=== PATIENT | female | born 1995 | race Caucasian/White ===

== ENCOUNTER 2022-08-15 00:31 | Emergency (ER) | payer OTHER, SELFPAY ==
[2022-08-15 00:32] VITALS: BP 132/94; PULSE 79; RESP 16; TEMP 36.6; O2SAT 98; BMI 22.0
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
[2022-08-15] MEDS: Morphine Sulfate 4 MG/ML CARTRIDGE IM (01:04)
[2022-08-15] MEDS: Bacitracin Oint 0.9 GM PACKET 1 APPL TOPICAL (01:07)
--- OUTSIDE RECORDS SUMMARY | 2022-08-15 01:31 | XMS_ITS | Continuity of Care Document ---
Author Name Unknown Organization [facility] Address [address] [place] [address]- Care Team Providers Care Laborer Pie Bakery Name Role Phone Santo Parnell DO Primary Care Physician Encounter 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
--- OUTSIDE RECORDS SUMMARY | 2022-08-15 01:31 | XMS_ITS | Continuity of Care Document ---
Author Name Unknown Organization [facility] Address [address] [place] [address]- Care Team Providers Care Real Estate Marketing Coordinator Name Role Phone Santo Parnell DO Primary Care Physician Encounter [facility] NBR [id number] Date(s): 04/13/19 - 04/13/[address] [address]- [facility] Encounter Diagnosis Acute tension headache(Final) - 04/13/19 Analgesic rebound headache(Final) - 04/13/19 Discharge Disposition: A-D/C Home Attending Physician: Vladimir Lofton MD Admitting Physician: Vladimir Lofton MD Referring Physician: Not on Staff, Referring MD Allergies, Adverse Reactions, Alerts Substance Reaction Severity Status NKA Active Problem List Condition Effective Dates Status Health Status Inform ant Asthma(Confirmed) Active Attention deficit hyperactiv ity disorder(Confirmed) Active Cannabis abuse(Confirmed) Active Conduct disturbance(Confirmed) Active 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 BURT (generalized anxiety disorder)(Confirmed) Active Mood disorder(Confirmed) Active Panic disorder with agorapho jennifer, mild agoraphobic avoidance and mild panic attacks(Confirmed) Active Vital Signs Most recent to oldest [Reference Range]: 1 Height 168 cm (04/13/19 4:36 PM) Weight 47.8 kg (04/13/19 4:36 PM) Oxygen Saturation [94-100 %] 99 % (04/13/19 4:36 PM) Pulse Rate [55-90 bpm] 101 bpm *H* (04/13/19 4:36 PM) Blood Pressure [90-138/55-84 mm Hg] 119/ 79mm Hg (04/13/19 4:36 PM) Respiratory Rate [16-30 br/min] 16 br/mi n (04/13/19 4:36 PM) Temperature [96.8-100.4 DegF] 99.3 DegF (04/13/19 4:36 PM) Mode of Delivery (Oxygen) Room air (04/13/19 4:36 PM) Temperature Route Temporal (04/13/19 4:36 PM) Dry Weight 47.8 kg (04/13/19 4:36 PM) Social History Social History Type Response Smoking Status Current every day marychuy brody entered on: 10/03/16 Sex
--- OUTSIDE RECORDS SUMMARY | 2022-08-15 01:31 | XMS_ITS | Continuity of Care Document ---
Author Name Unknown Organization [facility] ter Address [address] [place] [address]- Care Team Providers Care Tower Climber Name Role Phone Santo Parnell DO Primary Care Physician Encounter [facility] [place] Date(s): 11/11/19 - 12/18/[address] [address]- [facility] Attending Physician: Alyson Reeves NP Admitting Physician: Alyson Reeves NP Referring Physician: Alyson Reeves NP Allergies, Adverse Reactions, Alerts Substance Reaction Severity [...]
--- OUTSIDE RECORDS SUMMARY | 2022-08-15 01:31 | XMS_ITS | Continuity of Care Document ---
Author Name Unknown Organization [facility] Address [address] [place] [address]- Care Team Providers Care Supervisor Phosphorus Processing Name Role Phone Santo Parnell DO Primary Care Physician [place] [facility] Date[place] 11/07/[place] - 11/14/[address] [facility] [address] [place] [address]- [facility] Attending Physician: Lala SOMERS, Alyson Marrero Referring Physician: Santo Parnell DO Allergies, Adverse Reactions, Alerts Substance Reaction Severity [...] recent to oldest [Reference Range]: 1 Height 170 cm (11/07/19 4:09 PM) Weight 46.9 kg (11/07/19 4:09 PM) Pulse Rate [55-90 bpm] 76 bpm (11/07/19 4:09 PM) Body Mass Index [18.5-24.99] 16.23 *L* (11/07/19 4:09 PM) Blood Pressure [90-138/55-84 mm Hg] 109/ 61mm Hg (11/07/19 4:09 PM) Temperature [96.8-100.4 DegF] 98.7 DegF (11/07/19 4:09 PM) Blood pressure sites Arm, right (11/07/19 4:09 PM) Temperature Route Temporal (9/10/20 4:09 PM) Social History Social History Type Response Smoking Status Current every day marychuy brody entered on: 10/03/16 Sex
--- OUTSIDE RECORDS SUMMARY | 2022-08-15 01:31 | XMS_ITS | Continuity of Care Document ---
Author Name Unknown Organization [facility] ter Address [address] [place] [address]- Care Team Providers Care Remedial Project Manager Name Role Phone Santo Parnell DO Primary Care Physician Encounter [facility] Date(s): 11/07/19 - 12/11/[address] [address]- [facility] Attending Physician: Alyson Reeves NP Admitting Physician: [...]
--- OUTSIDE RECORDS SUMMARY | 2022-08-15 01:31 | XMS_ITS | Continuity of Care Document ---
Author Name Unknown Organization [facility] Address [address] [place] [address]- Care Team Providers Care Precision Dancer Name Role Phone Santo Parnell DO Primary Care Physician Encounter [facility] Date(s): 08/22/20 - 08/22/[address] [address]- Discharge Disposition: A-D/C Walkout Attending Physician: Sanya Herrera MD Admitting Physician: Sanya Herrera MD Referring Physician: Not on Staff, Referring [...]
--- OUTSIDE RECORDS SUMMARY | 2022-08-15 01:31 | XMS_ITS | Continuity of Care Document ---
Author Name Unknown Organization [facility] Address [address] [place] [address]- Care Team Providers Care Stone Decorator Name Role Phone Santo Parnell DO Primary Care Physician [id number] Date(s): 10/20/21 - 11/19/[address] [address] Allergies, Adverse Reactions, Alerts No Known Allergies Medications LORazepam 1 mg oral tablet See Instructions, PRN as needed for anxiety, Take 1 tablet 2 times a day and during PMS take up to 3 tablets per day MDD = 3mg, # 70 tablet, 3 Refills, Maintenance, 09/03/21 11:41:00 EDT, Tablet, [id number], 2nd rx for refill sent 01/08/2021.... Start Date: 09/03/21 Status: Ordered sertraline 100 mg oral tablet 1 tablet = 100 mg, By Mouth, Daily, # 90 tablet, 1 Refills, Maintenance, 09/03/21 11:42:00 EDT, Tablet, [id number], 2nd rx sent 06/29/2020, 170, cm, 02/16/20 2:45:00 EST, Height, 51.4, kg, 06/28/20 3:15:00 EDT, Dry Weight Start Date: 09/03/21 Stop Date: 03/02/22 Status: Ordered Problem List Condition Effective Dates Status Health [...] day [email or web address] brody entered on: 10/03/16 Sex Care Team Personnel Name: Santo Parnell DO Address: [address] [place] [address] [address] [place], [place] [address]
--- OUTSIDE RECORDS SUMMARY | 2022-08-15 01:31 | XMS_ITS | Continuity of Care Document ---
Author Name Unknown Organization [facility] ter Address [address] [place] [address]- Care Team Providers Care Cup Setter Lockstitch Name Role Phone Santo Parnell DO Primary Care Physician [place] [facility] [place] - 06/28/[address] [address] Discharge Disposition: A-D/C Home Attending Physician: José Miguel MONTAGUE, April Admitting Physician: José Miguel MONTAGUE, April Referring Physician: José Miguel MONTAGUE, April Allergies, Adverse Reactions, Alerts Substance Reaction Severity Status NKA Active Medications No Known Medications Problem List Condition Effective Dates Status Health Status Inform ant Asthma(Confirmed) Active Attention deficit hyperactiv ity disorder(Confirmed) Active Cannabis abuse(Confirmed) Active Conduct disturbance(Confirmed) Active 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 BURT (generalized anxiety disorder)(Confirmed) Active Mood disorder(Confirmed) Active Panic disorder with agorapho jennifer, mild agoraphobic avoidance and mild panic attacks(Confirmed) Active Vital Signs Most recent to oldest [Reference Range]: 1 Weight 51.4 kg (06/28/20 3:15 AM) Oxygen Saturation [94-100 %] 100 % (06/28/20 3:27 AM) Pulse Rate [55-90 bpm] 89 bpm (06/28/20 3:27 AM) Blood Pressure [90-138/55-84 mm Hg] 118/ 65mm Hg (06/28/20 3:27 AM) Respiratory Rate [16-30 br/min] 18 br/mi n (06/28/20 3:27 AM) Temperature [96.8-100.4 DegF] 99.5 DegF (06/28/20 3:27 AM) Mode of Delivery (Oxygen) Room air (06/28/20 3:27 AM) Blood pressure sites Arm, left (06/28/20 3:27 AM) Temperature Route Oral (06/28/20 3:27 AM) Dry Weight 51.4 kg (06/28/20 3:15 AM) Weight Obtained Via Standing scale (06/28/20 3:15 AM) Social History Social History Type Response Smoking Status Current every day [email or web address] brody entered on: 10/03/16 Sex
--- OUTSIDE RECORDS SUMMARY | 2022-08-15 01:31 | XMS_ITS | Continuity of Care Document ---
Author Name Unknown Organization [facility] ter Address [address] [place] [id number]- Care Team Providers Care Flame Gouger Name Role Phone Santo Parnell DO Primary Care Physician [id number] Date(s): 01/08/22 - 01/09/[address] [address]- Encounter Diagnosis Pharyngitis(Final) - 01/09/22 Discharge Disposition: A-D/C Home Attending Physician: Garrett Bowman MD Admitting Physician: Garrett Bowman MD Referring Physician: Not on Staff, Referring MD Allergies, Adverse Reactions, Alerts No Known Allergies Medications LORazepam 1 mg oral tablet See Instructions, PRN as needed for anxiety, Take 1 tablet 2 times a day and during PMS take up to 3 tablets per day MDD = 3mg, # 70 tablet, 3 Refills, Maintenance, 01/07/22 9:13:00 EST, Tablet, [id number], 2nd rx for refill sent 01/08/2021.... Start Date: 01/07/22 Status: Ordered sertraline 100 mg oral tablet 1 tablet = 100 mg, By Mouth, Daily, # 90 tablet, 1 Refills, Maintenance, 01/07/22 9:13:00 EST, Tablet, [id number], 2nd rx sent 06/29/2020, 170, cm, 02/16/20 2:45:00 EST, Height, 51.4, kg, 06/28/20 3:15:00 EDT, Dry Weight Start Date: 01/07/22 Stop Date: 07/06/22 Status: Ordered sertraline 25 mg oral tablet 1 tablet = 25 mg, By Mouth, Daily, take with 100mg for a TDD 125mg dose increase, # 90 tablet, 1 Refills, Maintenance, 01/07/22 9:14:00 EST, Tablet, [id number], Partial fill upon patient request if the prescription is for a schedule II opioid... 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 Confirmed Active Results Orders for Microbiology Reports Name Date Blood Culture 01/08/22 Blood Culture #2 01/08/22 Microbiology Reports TEST:Blood Culture STATUS:Unauthenticated BODY SITE: SOURCE:Blood COLLECTED DATE/TIME:01/08/22 10:49 PM Blood Culture SPECIMEN DESCRIPTION : BLOOD RAC SPECIAL REQUESTS : NONE CULTURE : NO GROWTH AFTER 24 HOURS REPORT STATUS : PRELIMINARY REPORT TEST:Blood Culture, Second Order STATUS:Unauthenticated BODY SITE: SOURCE:Blood COLLECTED DATE/TIME:01/08/22 10:49 PM Blood Culture, Second Order SPECIMEN DESCRIPTION : BLOOD LAC SPECIAL REQUESTS : NONE CULTURE : NO GROWTH AFTER 24 HOURS REPORT STATUS : PRELIMINARY REPORT Radiology Reports * Exam Date Time Procedure Performing Provider Status 01/09/22 12:[address] Soft Tissue Neck W/ Contrast Stup ak , Kulwant; Auth (Verified) Notes: (CT Soft Tissue Neck W/ Contrast) Reason For Exam: Neck mass, nonpulsatile;Other: RESULT: CT Soft Tissue Neck W/ Contrast CT Soft Tissue Neck W/ Contrast Hx of Present Illness: Sore throat x 1year, worse x 2 weeks. Unable to get in with ENT or PCP; Reason: Neck mass, nonpulsatile; Clinical Question(s): Lymphadenopathy; TECHNIQUE: Spiral CT neck with IV contrast formatted in 3 planes. 75 cc of Omnipaque 300 was administered intravenously. Weight-based protocol using automatic tube modulation was used to optimize exposure parameters. CTDIvol Body: 7.90 mGy, DLP Body: 258 mGy*cm. COMPARISON: None FINDINGS: [place] Findings, Lines and Tubes: None. Lower intracranial contents: No abnormalities are seen involving the portions of brain and extra-axial spaces included on the exam. Cervical Lymph Nodes: Normal in size. Paranasal Sinuses: The portions included on the study are clear. Mucosa and parapharyngeal spaces: No lesion identified. Vocal Cords: Normal. Salivary Glands: Normal. Vascular Structures: Grossly unremarkable. Thyroid Gland: Normal CT appearance. Upper mediastinum and lung apices: Normal. Bones: No focal abnormalities IMPRESSION: Unremarkable neck CT. No acute inflammatory process. No lymphadenopathy. I have personally reviewed the images and I agree with this report. WSN: [id number] Ordering Physician: Elida Thomas Dictated By: Fabian Hagen DO Dictated Date/Time: 01/09/22 3:39 am Reviewed By: Tonya Ewing MD Signed By: Tonya Ewing MD Signed Date/Time: 01/09/22 3:44 am Transcribed By: HARPREET Transcribed Date/Time: 01/09/22 0:57 am Vital Signs Most recent to oldest [Reference Range]: 1 2 3 Oxygen Saturation [94-100 %] 99 % (01/09/22 3:04 AM) 98 % (01/09/22 1:06 AM) 99 % (01/08/22 10:50 PM) Pulse Rate [55-90 bpm] 53 bpm *L* (01/09/22 3:04 AM) 50 bpm *L* (01/09/22 1:06 AM) 79 bpm (01/08/22 10:50 PM) Blood Pressure [90-138/55-84 mm Hg] 110/66mm Hg (01/09/22 3:04 AM) 121/77mm Hg (01/09/22 1:06 AM) 115/70mm Hg (01/08/22 10:50 PM) Respiratory Rate [16-30 br/min] 18 br/min (01/09/22 3:04 AM) 18 br/min (01/09/22 1:06 AM) 18 br/min (01/08/22 10:50 PM) Temperature [96.8-100.4 DegF] 98.1 DegF (01/09/22 3:04 AM) 98.3 DegF (01/08/22 10:50 PM) 98.4 DegF (01/08/22 10:10 PM) Mode of Delivery (Oxygen) Room air (01/09/22 3:04 AM) Room air (01/09/22 1:06 AM) Room air (01/08/22 10:50 PM) Temperature Route Oral (01/09/22 3:04 AM) Oral (01/08/22 10:50 PM) Oral (01/08/22 10:10 PM) Social History Social History Type Response Smoking Status Current every day [email or web address] brody entered on: 10/03/[address] Neck W contrast IV * [facility] , CIS S: TRANSCRIBE Tonya Ewing MD: VERIFY Fabian Hagen DO: SIGN Event Display: Result: Authored Date: CT Soft Tissue Neck W/ Contrast Hx of Present Illness: Sore throat x 1year, worse x 2 weeks. Unable to get in with ENT or PCP; Reason: Neck mass, nonpulsatile; Clinical Question(s): Lymphadenopathy; TECHNIQUE: Spiral CT neck with IV contrast formatted in 3 planes. 75 cc of Omnipaque 300 was administered intravenously. Weight-based protocol using automatic tube modulation was used to optimize exposure parameters. CTDIvol Body: 7.90 mGy, DLP Body: 258 mGy*cm. COMPARISON: None FINDINGS: [place] View Findings, Lines and Tubes: None. Lower intracranial contents: No abnormalities are seen involving the portions of brain and extra-axial spaces included on the exam. Cervical Lymph Nodes: Normal in size. Paranasal Sinuses: The portions included on the study are clear. Mucosa and parapharyngeal spaces: No lesion identified. Vocal Cords: Normal. Salivary Glands: Normal. Vascular Structures: Grossly unremarkable. Thyroid Gland: Normal CT appearance. Upper mediastinum and lung apices: Normal. Bones: No focal abnormalities IMPRESSION: Unremarkable neck CT. No acute inflammatory process. No lymphadenopathy. I have personally reviewed the images and I agree with this report. WSN: [id number] Ordering Physician: Elida Thomas Dictated By: Fabian Hagen DO Dictated Date/Time: 01/09/22 3:39 am Reviewed By: Tonya Ewing MD Signed By: Tonya Ewing MD Signed Date/Time: 01/09/22 3:44 am Transcribed By: HARPREET Transcribed Date/Time: 01/09/22 0:57 am Patient Care team information Care Team Personnel Name: Mari Clark Position: [facility] Outreach Member Role: Lifetime Consulting Physician Name: Beatriz Kong Position: [facility] RN Member Role: Primary Care Nurse Name: Ayla Villanueva Position: [facility] RN Member Role: Primary Care Nurse Name: Santo Parnell DO Position: [facility] Physician (General Medicine) Member Role: PCP Address: Address: [address] [place], [place] [id number] [place] [address]- Name: Elida Thomas NP Position: [facility] Associate Professional Member Role: ED Physician Track Greaser Address: Address: [address] [place] [address]- Name: Elisabeth Estes RN Position: [facility] ED RN W/OE and Tasks Member Role: Patient Care Provider Name: Garrett Bowman MD Position: [facility] Resident Member Role: Admitting Physician Address: Address: [address] [place] [address]- Care Team Related Persons Name: RUFINO CASAREZ Address: home [address] [place] [address] Name: ERIK HILL Address: home [address] [place] [address]
--- OUTSIDE RECORDS SUMMARY | 2022-08-15 01:31 | XMS_ITS | Continuity of Care Document ---
Author Name Unknown Organization [facility] ter Address [address] [place] [address]- Care Team Providers Care Mobile Home Mechanic Name Role Phone Santo Parnell DO Primary Care Phys[id number] Date[facility]s): 12/28/20 - 12/28/[address] [address]- Encounter Diagnosis Eyelid laceration(Final) - 12/28/20 Discharge Disposition: A-D/C Home Attending Physician: Christ Luna MD Admitting Physician: Christ Luna MD Referring Physician: Not on Staff, Referring MD Allergies, Adverse Reactions, Alerts Substance Reaction Severity Status NKA Active Medications Augmentin 875 mg-125 mg oral tablet 1 tablet, By Mouth, Every 12 hours, for 7 days, # 14 tablet, 0 Refills, Acute 01/04/21 17:50:00 EST, 12/28/20 17:50:00 EDT, Tablet, [id number], Partial fill upon patient request if the prescription is for a schedule II opioid drug., 170, cm, 1... Start Date: 12/28/20 Stop Date: 01/04/21 Status: Ordered erythromycin 0.5% ophthalmic ointment 0.5 inches, Eye, Left, 4 times a day, for 7 days, # 3.5 Gm, 0 Refills, Acute 01/04/21 17:50:00 EST,12/28/20 17:50:00 EDT, Ophth Ointment, [id number], Partial fill upon patient request if theprescription is for a schedule II opioid drug., 0.5... Start Date: 12/28/20 Stop Date: 01/04/21 Status: Ordered Problem List Condition Effective Dates Status Health Status Inform ant Asthma(Confirmed) Active Attention deficit hyperactiv ity disorder(Confirmed) Active Cannabis abuse(Confirmed) Active Conduct disturbance(Confirmed) Active 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 BURT (generalized anxiety disorder)(Confirmed) Active Mood disorder(Confirmed) Active Panic disorder with agorapho jennifer, mild agoraphobic avoidance and mild panic attacks(Confirmed) Active Vital Signs Most recent to oldest [Reference Range]: 1 Oxygen Saturation [94-100 %] 99 % (12/28/20 2:43 PM) Pulse Rate [55-90 bpm] 100 bpm *H* (12/28/20 2:43 PM) Blood Pressure [90-138/55-84 mm Hg] 135/ 82mm Hg (12/28/20 2:43 PM) Respiratory Rate [16-30 br/min] 16 br/mi n (12/28/20 2:43 PM) Temperature [96.8-100.4 DegF] 98.2 DegF (12/28/20 2:43 PM) Mode of Delivery (Oxygen) Room air (12/28/20 2:43 PM) Blood pressure sites Arm, right (12/28/20 2:43 PM) Temperature Route Oral (12/28/20 2:43 PM) Social History Social History Type Response Smoking Status Current every day marychuy brody entered on: 10/03/16 Sex
--- OUTSIDE RECORDS SUMMARY | 2022-08-15 01:31 | XMS_ITS | Continuity of Care Document ---
Author Name Unknown Organization [facility] Address [address] [place] [address]- Care Team Providers Care Hotel Staff Member Name Role Phone Santo Parnell DO Primary Care Physician Encounter [facility] Date(s): 11/03/19 - 11/03/[address] [address]- [facility] Discharge Disposition: A-D/C Home Attending Physician: Garrett Tamayo MD Admitting Physician: Garrett Tamayo MD Referring Physician: Not on Staff, Referring [...] recent to oldest [Reference Range]: 1 2 Height 168 cm (11/03/19 2:55 PM) Weight 47.4 kg (11/03/19 2:55 PM) Oxygen Saturation [94-100 %] 100 % (11/03/19 5:59 PM) 97 % (11/03/19 2:55 PM) Pulse Rate [55-90 bpm] 52 bpm *L* (11/03/19 5:59 PM) 73 bpm (11/03/19 2:55 PM) Blood Pressure [90-138/55-84 mm Hg] 114/ 67mm Hg (11/03/19 5:59 PM) 110/84mm Hg (11/03/19 2:55 PM) Respiratory Rate [16-30 br/min] 14 br/mi n *L* (11/03/19 2:55 PM) Temperature [96.8-100.4 DegF] 98.2 DegF (11/03/19 5:59 PM) 98.2 DegF (11/03/19 2:55 PM) Mode of Delivery (Oxygen) Room air (11/03/19 5:59 PM) Room air (11/03/19 2:55 PM) Blood pressure sites Arm, left (11/03/19 5:59 PM) Arm, left (11/03/19 2:55 PM) Temperature Route Temporal (11/03/19 5:59 PM) Oral (11/03/19 2:55 PM) Dry Weight 47.4 kg (11/03/19 2:55 PM) Weight Obtained Via Standing scale (11/03/19 2:55 PM) Dry Weight Obtained Via Standing scale (11/03/19 2:55 PM) Social History Social History Type Response Smoking Status Current every day marychuy brody entered on: 10/03/16 Sex
--- OUTSIDE RECORDS SUMMARY | 2022-08-15 01:31 | XMS_ITS | Continuity of Care Document ---
Author Name Unknown Organization [facility] Address [address] [place] [address]- Care Team Providers Care Quality Specialist Name Role Phone Santo Parnell DO Primary Care Physician Encounter [facility] Date(s): 02/15/20 - 02/16/[address] [address]- Encounter Diagnosis Pelvic pain(Final) - 02/16/20 Discharge Disposition: A-D/C Home Attending Physician: Jorge John DO Admitting Physician: Jorge John DO Referring Physician: Not on Staff, Referring MD Allergies, Adverse Reactions, Alerts Substance Reaction Severity Status NKA Active Medications ibuprofen 600 mg oral tablet 600 mg, 1, tablet, By Mouth, Every 8 hours, PRN, for 10 days, # 50 tablet, Refills 0, Tot. Refills 0, Acute 02/26/20 2:34:00 EST, as needed for pain, 02/16/20 2:34:00 EST, Route to Pharmacy Electronically, [id number], Partial fill upon patient... Start Date: 02/16/20 Stop Date: 02/26/20 Status: Ordered Problem List Condition Effective Dates [...] to oldest [Reference Range]: 1 2 Height 170 cm (02/16/20 2:45 AM) 170 cm (02/16/20 12:14 AM) Weight 48.5 kg (02/16/20 2:45 AM) 48.5 kg (02/16/20 12:14 AM) Oxygen Saturation [94-100 %] 97 % (02/16/20 2:45 AM) 95 % (02/16/20 12:14 AM) Pulse Rate [55-90 bpm] 62 bpm (02/16/20 2:45 AM) 95 bpm *H* (02/16/20 12:14 AM) Body Mass Index [18.5-24.99] 16.78 *L* (02/16/20 2:45 AM) Blood Pressure [90-138/55-84 mm Hg] 114/ 57mm Hg (02/16/20 2:45 AM) 134/77mm Hg (02/16/20 12:14 AM) Respiratory Rate [16-30 br/min] 16 br/mi n (02/16/20 2:45 AM) 16 br/min (02/16/20 12:14 AM) Temperature [96.8-100.4 DegF] 98.0 DegF (02/16/20 2:45 AM) 98.5 DegF (02/16/20 12:14 AM) Mode of Delivery (Oxygen) Room air (02/16/20 2:45 AM) Room air (02/16/20 12:14 AM) Blood pressure sites Arm, left (02/16/20 2:45 AM) Arm, left (02/16/20 12:14 AM) Temperature Route Oral (02/16/20 2:45 AM) Oral (02/16/20 12:14 AM) Dry Weight 48.5 kg (02/16/20 2:45 AM) 48.5 kg (02/16/20 12:14 AM) Weight Obtained Via Standing scale (02/16/20 12:14 AM) Dry Weight Obtained Via Standing scale (02/16/20 12:14 AM) Social History Social History Type Response Smoking Status Current every day marychuy brody entered on: 10/03/16 Sex
[2022-08-15] MEDS: Ibuprofen 400 MG TABLET PO (01:39)
== END 2022-08-15 01:51 | disposition home or self-care (01) ==
PROVIDERS: Emergency Provider Emergency Medicine
DX: T23.202A Burn of second degree of left hand, unspecified site, initial encounter (principal); T31.0 Burns involving less than 10% of body surface; X10.2XXA Contact with fats and cooking oils, initial encounter; Y93.9 Activity, unspecified; Y92.9 Unspecified place or not applicable; Y99.9 Unspecified external cause status
CPT/HCPCS: 16025; 96372; 99284; J2270

== ENCOUNTER 2022-08-30 10:50 | Emergency (ER) | payer OTHER, SELFPAY ==
[2022-08-30 11:04] VITALS: BP 126/83; PULSE 81; RESP 16; TEMP 36.2; O2SAT 100; BMI 22.2
--- NOTE | 2022-08-30 11:11 | ED.EXTPRO ---
HPI - Extremity Problem General Chief complaint: Extremity Injury, Upper Stated complaint: R wrist pain Time Seen by Provider: 08/30/22 11:11 Source: patient Mode of arrival: ambulatory Limitations: no limitations History of Present Illness HPI Narrative: 27 yo female right hand dominant presents to the ER with complants of 3 weeks of right wrist pain with no known injury or trauma. No swelling, warmth, redness, fevers, chills. 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 Has been intermittently using a velcro wrist splint and taking ibuprofen with continued symptoms. Related Data Previous Rx's Medication Instructions Recorded amoxicillin 875 mg-potassium 1 tab PO BID 7 days #14 tabs 08/15/22 clavulanate 125 mg tablet ibuprofen 400 mg tablet 400 mg PO Q6H 3 days #12 tabs 08/15/22 naproxen 500 mg tablet 500 mg PO BID PRN pain #30 tabs 08/30/22 Allergies Allergy/AdvReac Type Severity Reaction Status Date / Time No Known Allergies Allergy Verified 08/30/22 11:08 Review of Systems Review of Systems: Yes all other systems are reviewed and are negative Constitutional: Constitutional: Reports no additional constitutional complaints, Denies body ache(s), Denies chills, Denies fever(s), Denies headache(s) and Denies weakness Eyes: Eyes: Reports no additional eye complaints and Denies change in vision ENT: Reports system reviewed and no additional complaints, except as documented, Denies dizziness, Denies headache(s), Denies nasal congestion, Denies nasal discharge and Denies neck pain Cardiovascular: Cardiovascular: Reports no additional cardiovascular complaints, Denies chest pain, Denies leg edema and Denies dyspnea Respiratory: Respiratory: Reports no additional respiratory complaints, Denies cough and Denies dyspnea Gastrointestinal: Gastrointestinal: Reports no additional gastrointestinal complaints, Denies abdominal pain, Denies diarrhea, Denies nausea and Denies vomiting Genitourinary: Genitourinary: Reports no additional female genitourinary complaints and Denies urinary incontinence Musculoskeletal: Musculoskeletal: Reports no additional musculoskeletal complaints, Denies back pain, Reports arthralgias, Denies joint swelling, Denies limited range of motion, Denies neck pain, Denies numbness and Denies tingling Integumentary/Breasts: Skin/Breast: Reports system reviewed and no additional complaints, except as docu and Denies rash Neurologic: Reports system reviewed and no additional complaints, except as documented, Denies Abnormal speech present, Denies dizziness, Denies headache(s), Denies numbness, Denies tingling and Denies weakness PMFSH Past Medical History Attestation statement: The following information was validated with the patient. Source: old records reviewed and nursing notes reviewed Social History Social History Advance Directives: No Advance Directives Information Provided: No Physical Exam Vital Signs: Vital Signs: Last Vital Signs Temp 97.1 F 08/30/22 11:04 Pulse 81 08/30/22 11:04 Resp 16 08/30/22 11:04 BP 126/83 08/30/22 11:04 Pulse Ox 100 08/30/22 11:04 O2 Del Method Room Air 08/30/22 11:04 BMI result Body Mass Index 22.2 Const: General: cooperative, healthy appearing, comfortable and no acute distress Orientation/consciousness: patient oriented x3 Limitations: no limitations HEENT: Head: Yes normal to inspection Ears: hearing grossly normal bilaterally General nose exam: Normal external nose present Face and sinus: Yes normal facial exam Mouth: Normal oral and palatal mucosa present Throat: Yes posterior oropharynx normal Eyes: General: appearance normal, both eyes and all related structures Pupils: Equal, round and reactive pupils present Neck: Neck: Yes normal visual inspection Chest: Chest palpation & inspection: normal inspection of the chest Resp: Effort & Inspection: normal respiratory effort Auscultation: clear to auscultation bilaterally Cardio: Rate: regular rate Rhythm: regular rhythm Peripheral pulses: Peripheral pulses 2+ throughout GI: Inspection: Yes normal to inspection Palpation (GI): Soft to palpation and nontender Auscultation: normal bowel sounds Back/Spine/Pelvis: Thoracic/Lumbar Spine: thoracic and lumbar spine normal to inspection Skin: General skin exam: no rashes or lesions noted Neuro: General: patient oriented x3, no focal motor deficits and normal sensation to monofilament Cranial nerves: Yes Equal, round and reactive pupils present Cognition (Neuro): normal cognition Speech: No Abnormal speech present Gait exam (Neuro): Normal gait present Motor exam (neuro): 5/5 motor strength present throughout Extrem: Other: There is tenderness on palpation over the dorsal distal wrist near the ulnar styloid which is worsened with ulnar deviation. Normal passive/active flexion/extension/radial deviation with no pain. Negative finklestein test Negative phalen and tinel sign Normal sensation No warmth, erythema, swelling seen Normal radial/ulnar pulses General: Yes normal to inspection Course Course Course Narrative: x-ray shows no acute abnormality. May be overuse injury or tendinitis. Patient will be recommended to use splint, NSAID and follow-up with her primary care and/or orthopedics for any continued symptoms. Reviewed worrisome signs and symptoms of when to return to the emergency room. Comfortable plan for discharge home. Medications Administered Discontinued Medications Generic Name Dose Route Start Last Admin Trade Name Freq PRN Reason Stop Dose Admin Acetaminophen 975 mg 08/30/22 13:03 08/30/22 13:10 Acetaminophen 325 Mg Tablet PO 08/30/22 13:04 975 mg ONCE ONE Administration Medical Decision Making Medical Decision Making MDM Narrative: 27-year-old female [id number] here with atraumatic right wrist pain for the last 3 weeks with no reports of swelling, redness, or warmth. 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 Patient with pain on palpation over the distal dorsal ulnar styloid which is worsened with ulnar deviation with no obvious swelling, warmth or redness. All other range of motion is normal. Will check x-rays. Patient unsure so will need test prior Differential Diagnosis Differential Diagnoses: The differential diagnosis associated with the presentation includes Strain, sprain, tendinitis Low concern for fracture Lab Data [facility] Lab Attestation statement: I reviewed the patient's lab results. Negative test Labs: Lab Results 08/30/22 Range/Units 11:46 Urine Test NEGATIVE (NEGATIVE) Independent Interpretation I performed an independent interpretation of an: Plain X-Ray Interpretation: I independently reviewed the x-ray and agree with the rad report Radiology Impression Discussion of test interpretation with radiology: I have reviewed the radiologist's reading. Radiologist Impression: [address] [address] XRay Report Signed Patient: Henny Cason MR#: [id number] : 1995 Acct:[id number] Age/Sex: 27 / F ADM Date: 08/30/22 Loc: HO.ED Attending Dr: Ordering Physician: Gregory Ronquillo MD Date of Service: 08/30/22 Procedure(s): XR wrist RT min 3V Accession Number(s): [id number] cc: Gregory Ronquillo MD~ EXAMINATION: XR WRIST, RIGHT CLINICAL INFORMATION: Right wrist pain.? COMPARISON: None available.? TECHNIQUE: PA, lateral, and oblique views of the right wrist. A dedicated scaphoid view was also obtained. FINDINGS: There is no acute or healing fracture. Alignment across the visualized joints is preserved. No changes of an erosive arthropathy are appreciated. There is no aggressive appearing periosteal reaction or any suspicious intraosseous bony lesion. There is no soft tissue swelling or joint effusion. No soft tissue calcifications are noted. XR/XR wrist RT min 3V IMPRESSION: Unremarkable appearance of the right wrist. If there is persistent pain, wrist MRI can be performed on a nonemergent basis. ? Prescription Management I considered prescription management with: Pain Medication Patient using ibuprofen at home, can add tylenol adjunctively for pain control Discharge Plan Discharge Clinical Impression: Right wrist pain Patient Disposition: Home, Self-Care Instructions: Arthralgia (ED), Warm Compress or Soak (ED) Additional Instructions: Heat or ice the area Alternate Motrin and Tylenol for pain as needed Use the wrist splint at home Follow-up with primary care doctor as you may need a referral to see an orthopedic Prescriptions: New naproxen 500 mg tablet 500 mg PO BID PRN (Reason: pain) Qty: 30 0RF No Action ibuprofen 400 mg tablet 400 mg PO Q6H 3 Days Qty: 12 0RF amoxicillin-pot clavulanate 875-125 mg tablet 1 tab PO BID 7 Days Qty: 14 0RF Referrals: [facility] [Provider Group] - 1 week (Dione Cotton-right wrist pain, negative x-rays) Physician,Unknown J [Primary Care Provider] - 1 week (PCP)
--- NOTE | 2022-08-30 13:15 | PC.NURSE ---
Patient pain increasing. Provider made aware and medicated with Tylenol per APR.
[2022-08-30 14:03] VITALS: BP 129/76; PULSE 76; RESP 18; O2SAT 99
== END 2022-08-30 14:07 | disposition home or self-care (01) ==
PROVIDERS: Emergency Provider Emergency Medicine Emergency Medical Services
DX: M25.531 Pain in right wrist (principal)
CPT/HCPCS: 73110; 81025; 99283; 99284

== ENCOUNTER 2022-10-13 10:53 | Emergency (ER) | payer OTHER, SELFPAY | END 2022-10-13 12:36 | disposition left against medical advice (07) | PROVIDERS: Emergency Provider Emergency Medicine | DX: K92.0 Hematemesis (principal) ==

== ENCOUNTER 2022-11-27 13:08 | Emergency (ER) | payer OTHER, SELFPAY ==
--- NOTE | 2022-11-27 13:15 | ED_ITS ---
HPI - Female Genitourinary General Chief complaint: Urogenital-Female Stated complaint: peeing blood Time Seen by Provider: 11/27/22 13:26 Source: patient Mode of arrival: ambulatory Limitations: no limitations History of Present Illness HPI Narrative: 27 yo female who is previously healthy here with complaints of 5 days of dysuria, urinary urgency, hematuria. Denies any back pain, abdominal pain, fevers, chills, vomiting, diarrhea, vaginal discharge. Last menstrual cycle 2 weeks ago. Related Data Previous Rx's Medication Instructions Recorded amoxicillin 875 mg-potassium 1 tab PO BID 7 days #14 tabs 08/15/22 clavulanate 125 mg tablet ibuprofen 400 mg tablet 400 mg PO Q6H 3 days #12 tabs 08/15/22 naproxen 500 mg tablet 500 mg PO BID PRN pain #30 tabs 08/30/22 nitrofurantoin 100 mg PO Q12H 5 days #10 caps 11/27/22 monohydrate/macrocrystals 100 mg capsule (Macrobid) phenazopyridine 200 mg tablet 200 mg PO TID PRN pain 6 doses #15 11/27/22 (Pyridium) tabs Allergies Allergy/AdvReac Type Severity Reaction Status Date / Time No Known Allergies Allergy Verified 11/27/22 13:17 Review of Systems Review of Systems: Yes all other systems are reviewed and are negative Constitutional: Constitutional: Reports no additional constitutional complaints, Denies body ache(s), Denies chills, Denies fever(s), Denies headache(s) and Denies weakness Eyes: Eyes: Reports no additional eye complaints and Denies change in vision ENT: Reports system reviewed and no additional complaints, except as documented, Denies dizziness, Denies headache(s), Denies nasal congestion, Denies nasal discharge and Denies neck pain Cardiovascular: Cardiovascular: Reports no additional cardiovascular complaints, Denies chest pain, Denies leg edema and Denies dyspnea Respiratory: Respiratory: Reports no additional respiratory complaints, Denies cough and Denies dyspnea Gastrointestinal: Gastrointestinal: Reports no additional gastrointestinal complaints, Denies abdominal pain, Denies diarrhea, Denies nausea and Denies vomiting Genitourinary: Genitourinary: Reports no additional female genitourinary complaints, Reports hematuria, Reports dysuria, Denies flank pain, Denies urinary incontinence, Denies urinary hesitancy, Reports urinary urgency, Denies vaginal discharge, Denies vaginal dryness, Denies vaginal odor and Denies vaginal pruritus Musculoskeletal: Musculoskeletal: Reports no additional musculoskeletal compl aints, Denies back pain, Denies arthralgias, Denies joint swelling, Denies neck pain, Denies numbness and Denies tingling Integumentary/Breasts: Skin/Breast: Reports system reviewed and no additional complaints, except as docu and Denies rash Neurologic: Reports system reviewed and no additional complaints, except as documented, Denies Abnormal speech present, Denies dizziness, Denies headache(s), Denies numbness, Denies tingling and Denies weakness PMFSH Past Medical History Attestation statement: The following information was validated with the patient. Source: old records reviewed and nursing notes reviewed Social History Social History Alcohol intake: never Advance Directives: No Advance Directives Information Provided: No Physical Exam Vital Signs: Vital Signs: Last Vital Signs Temp 98.5 F 11/27/22 13:16 Pulse 65 11/27/22 13:16 Resp 16 11/27/22 13:16 BP 125/80 11/27/22 13:16 Pulse Ox 99 11/27/22 13:16 O2 Del Method Room Air 11/27/22 13:16 BMI result Body Mass Index 22.2 Const: General: cooperative, healthy appearing, comfortable and no acute distress Orientation/consciousness: patient oriented x3 Limitations: no limitations HEENT: Head: Yes normal to inspection Ears: hearing grossly normal bilaterally General nose exam: Normal external nose present Face and sinus: Yes normal facial exam Mouth: Normal oral and palatal mucosa present Throat: Yes posterior oropharynx normal Eyes: General: appearance normal, both eyes and all related structures Pupils: Equal, round and reactive pupils present Neck: Neck: Yes normal visual inspection Chest: Chest palpation & inspection: normal inspection of the chest Resp: Effort & Inspection: normal respiratory effort Auscultation: clear to auscultation bilaterally Cardio: Rate: regular rate Rhythm: regular rhythm Peripheral pulses: Peripheral pulses 2+ throughout GI: Inspection: Yes normal to inspection Palpation (GI): Soft to palpation and nontender Auscultation: normal bowel sounds Back/Spine/Pelvis: Thoracic/Lumbar Spine: thoracic and lumbar spine normal to inspection Skin: General skin exam: no rashes or lesions noted Neuro: General: patient oriented x3, no focal motor deficits and normal sensation to monofilament Cranial nerves: Yes Equal, round and reactive pupils present Cognition (Neuro): normal cognition Speech: No Abnormal speech present Gait exam (Neuro): Normal gait present Motor exam (neuro): 5/5 motor strength present throughout Extrem: General: Yes normal to inspection Course Course Course Narrative: RME - 27 yo female with history of UTI x3 in the past presenting with urinary symptoms for the last 5 days. Reports urgency, frequency and hematuria which is new x2 days. No back pain, abdominal pain, vomiting or fevers. LMP 2 weeks ago Plan: UA and Upreg Medical Decision Making Medical Decision Making [facility] Narrative: 27 yo female who is previously healthy here with complaints of 5 days of dysuria, urinary urgency, hematuria. Denies any back pain, abdominal pain, fevers, chills, vomiting, diarrhea, vaginal discharge. Last menstrual cycle 2 weeks ago. No focal abdominal pain on exam. No CVA tenderness. Plan: UA, urine Differential Diagnosis Differential Diagnoses: The differential diagnosis associated with the presentation includes uti low concern for sti, renal colic, pyelo Admission/Observation Consideration of admission/observation: Escalation of care including admission/observation considered Patient has UTI with no clinical findings concerning for renal colic for pyelonephritis. She is nontoxic, afebrile, tolerating p.o.. Can be discharged home with oral antibiotics. Does not need IV antibiotics and admission Lab Data [facility] Lab Attestation statement: I reviewed the patient's lab results. UTI Labs: Lab Results 11/27/22 Range/Units 13:24 Urine Color [place] A Urine Appearance Turbid Urine pH 6.5 (5.0-9.0) Ur Specific [place] 1.025 (1.005-1.025) Urine Protein 300 (3+) H (Neg-Trace) mg/dL Urine Glucose (UA) Negative (Negative) mg/dL Urine Ketones Trace (Negative) mg/dL Urine Blood Large (3+) H (Negative) Urine Nitrite Negative (Negative) Ur Leukocyte Esterase Large (3+) H (Negative) Urine RBC >20 H (0-2) /HPF Urine WBC >50 H (0-5) /HPF Ur Squamous Epith Cells 11-20 (0-2) /HPF Urine Bacteria 2+ (None Seen) Hyaline Casts 0-2 (0-2) /LPF Urine Test NEGATIVE (NEGATIVE) Tests considered The following testing was considered but not selected: ct Prescription Management I considered prescription management with: Antibiotic Discharge Plan Discharge Clinical Impression: Urinary tract infection Patient Disposition: Home, Self-Care Instructions: Urinary Tract Infection in Women (ED) Additional Instructions: Increase fluids, rest Return for fever, vomiting, higher back pain Prescriptions: New nitrofurantoin monohyd/m-cryst [Macrobid] 100 mg capsule 100 mg PO Q12H 5 Days Qty: 10 0RF Rx Instructions: must administer with a meal/food phenazopyridine [Pyridium] 200 mg tablet 200 mg PO TID PRN (Reason: pain) Qty: 15 0RF No Action ibuprofen 400 mg tablet 400 mg PO Q6H 3 Days Qty: 12 0RF amoxicillin-pot clavulanate 875-125 mg tablet 1 tab PO BID 7 Days Qty: 14 0RF naproxen 500 mg tablet 500 mg PO BID PRN (Reason: pain) Qty: 30 0RF Referrals: Physician,Unknown J [Primary Care Provider] - 1 week
[2022-11-27 13:16] VITALS: BP 125/80; PULSE 65; RESP 16; TEMP 36.9; O2SAT 99; BMI 22.2
[2022-11-27 13:58] LABS: Appearance Urine Turbid; Color Urine Orange; Glucose Urine UA Negative (Negative); Leukocyte Esterase Urine Large (3+) (Negative); Nitrite Urine Negative (Negative); PH 6.5 (5.0-9.0); Specific Gravity - Urine 1.025 (1.005-1.025); UMIC TRIGGER UACC YES; Urine Blood Large (3+) (Negative); Urine Ketones Trace mg/dL (Negative); Urine Protein 300 (3+) mg/dL (Neg-Trace)
[2022-11-27 14:05] LABS: Bacteria Urine 2+ (None Seen); Hyaline Casts Urine 0-2 /LPF (0-2); RBC Urine >20 /HPF (0-2); UACC Culture Trigger YES; WBC Urine >50 /HPF (0-5)
[2022-11-27 14:15] LABS: UPreg QC Valid YES; Urine Pregnancy NEGATIVE (NEGATIVE)
== END 2022-11-27 14:41 | disposition home or self-care (01) ==
PROVIDERS: Physician Assistant; Emergency Provider Emergency Medicine
DX: N39.0 Urinary tract infection, site not specified (principal); Z79.899 Other long term (current) drug therapy
CPT/HCPCS: 81001; 81025; 87086; 87088; 87186; 99282